=== PATIENT | female | born 1950 | race Caucasian/White ===

== ENCOUNTER → 2016-11-26 | Outpatient (CLI) | payer MEDICARE, BC ==
--- NOTE | 2016-11-26 09:08 | US ---
EXAMINATION TYPE: US abdomen complete DATE OF EXAM: 11/26/2016 COMPARISON: NONE CLINICAL HISTORY: Unspecified Abdominal Pain R10.9. RUQ pain that extends to back, cholecystectomy EXAM MEASUREMENTS: Liver Length: 18.7 cm Gallbladder Wall: N/A CBD: 0.7 cm Spleen: not seen Right Kidney: 10.4 x 3.4 x 3.0 cm Left Kidney: 10.7 x 4.8 x 5.4 cm Pancreas: Visualized portions are within normal limits Liver: wnl Gallbladder: Surgically absent Evidence for sonographic Juan's sign: no CBD: wnl Spleen: unable to visualized spleen due to high position and bowel gas Right Kidney: wnl Left Kidney: wnl Upper IVC: wnl Abd Aorta: limited views due to bowel gas The liver is homogenous. The intrahepatic portion of the IVC and proximal abdominal aorta are within normal limits. The visualized portions of the pancreas are homogenous. Kidneys are symmetric and free of hydronephrosis. No renal lesions are seen. IMPRESSION: 1. Nonvisualization of the spleen due to overlying bowel gas. 2. Status post cholecystectomy. 3. Unremarkable liver, visualized portions of the pancreas, visualized aortic caliber, and kidneys.
== END | disposition home or self-care (01) ==
LOC: RADUSWWP 07:29
PROVIDERS: ATTEND Family Medicine
DX: R10.9 Unspecified abdominal pain (principal); Z90.49 Acquired absence of other specified parts of digestive tract
CPT/HCPCS: 76700

== ENCOUNTER → 2016-12-04 | Outpatient (CLI) | payer MEDICARE, BC ==
--- NOTE | 2016-12-04 12:41 | MM ---
Reason for exam: screening (asymptomatic). Last mammogram was performed 1 year ago. History: Patient is postmenopausal. Family history of breast cancer in mother. Physical Findings: A clinical breast exam by your physician is recommended on an annual basis and results should be correlated with mammographic findings. MG Screening Mammo w CAD Bilateral CC and MLO view(s) were taken. Prior study comparison: November 28, 2015, mammogram, performed at [facility]. November 21, 2014, mammogram, performed at [facility]. There are scattered fibroglandular densities. No suspicious abnormality. No significant changes when compared with prior studies. ASSESSMENT: Negative, BI-RAD 1 RECOMMENDATION: Routine screening mammogram of both breasts in 1 year.
== END | disposition home or self-care (01) ==
LOC: RADMAMWWP 08:10
PROVIDERS: ATTEND Family Medicine
DX: Z12.31 Encounter for screening mammogram for malignant neoplasm of breast (principal)

== ENCOUNTER → 2017-12-09 | Outpatient (CLI) | payer MEDICARE, BC ==
--- NOTE | 2017-12-11 11:04 | MM ---
Reason for exam: screening (asymptomatic). Last mammogram was performed 1 year ago. History: Patient is postmenopausal. Family history of breast cancer in mother. Physical Findings: A clinical breast exam by your physician is recommended on an annual basis and results should be correlated with mammographic findings. MG 3D Screening Mammo W/Cad Bilateral CC and MLO view(s) were taken. Prior study comparison: December 04, 2016, bilateral MG screening mammo w CAD. November 28, 2015, mammogram, performed at [facility]. The breast tissue is almost entirely fat. There is chronic nodularity in the right breast. No significant changes when compared with prior studies. ASSESSMENT: Negative, BI-RAD 1 RECOMMENDATION: Routine screening mammogram of both breasts in 1 year.
== END ==
LOC: RADMAMWWP 13:43
PROVIDERS: ATTEND Family Medicine
DX: Z12.31 Encounter for screening mammogram for malignant neoplasm of breast (principal)
CPT/HCPCS: 77063; 77067

== ENCOUNTER → 2018-12-16 | Outpatient (CLI) | payer MEDICARE ==
--- NOTE | 2018-12-17 09:52 | MM ---
Reason for exam: screening (asymptomatic). Last mammogram was performed 1 year ago. History: Patient is postmenopausal. Family history of breast cancer in mother. Physical Findings: A clinical breast exam by your physician is recommended on an annual basis and results should be correlated with mammographic findings. MG 3D Screening Mammo W/Cad Bilateral CC and MLO view(s) were taken. Prior study comparison: December 09, 2017, bilateral MG 3d screening mammo w/cad. December 04, 2016, bilateral MG screening mammo w CAD. There are scattered fibroglandular densities. There is no discrete abnormality. No significant changes when compared with prior studies. ASSESSMENT: Negative, BI-RAD 1 RECOMMENDATION: Routine screening mammogram of both breasts in 1 year.
== END | disposition home or self-care (01) ==
LOC: RADMAMWWP 07:32
PROVIDERS: ATTEND Family Medicine
DX: Z12.31 Encounter for screening mammogram for malignant neoplasm of breast (principal)
CPT/HCPCS: 77063; 77067

== ENCOUNTER → 2019-08-22 | Outpatient (CLI) | payer MEDICARE ==
--- NOTE | 2019-08-22 11:56 | US ---
EXAMINATION TYPE: US venous doppler duplex LE DATE OF EXAM: 08/22/2019 10:43 AM COMPARISON: NONE CLINICAL HISTORY: 68-year-old female R60.9 Edema. Intermittent bilateral ankle swelling x 1 week SIDE PERFORMED: Bilateral TECHNIQUE: The lower extremity deep venous system is examined utilizing real time linear array sonog patsy with graded compression, doppler sonography and color-flow sonography. FINDINGS: VESSELS IMAGED: External Iliac Vein (EIV) Common Femoral Vein Deep Femoral Vein Greater Saphenous Vein * Femoral Vein Popliteal Vein Small Saphenous Vein * Proximal Calf Veins (* superficial vessels) Right Leg: Appears negative for DVT Left Leg: Appears negative for DVT IMPRESSION: No evidence for DVT within the bilateral lower extremities imaged from the groin to the upper calves.
== END | disposition home or self-care (01) ==
LOC: RADUSWWP 10:02
PROVIDERS: ATTEND Family Medicine
DX: R60.9 Edema, unspecified (principal)
CPT/HCPCS: 93970

== ENCOUNTER → 2019-08-23 | Outpatient (CLI) | payer MEDICARE ==
--- NOTE | 2019-08-24 16:00 | ECHOF ---
Referral Reason:R60.9 Edema, G72.9 Myopathy MEASUREMENTS -------- HEIGHT: 160.0 cm WEIGHT: 83.9 kg BP: RVIDd: 2.5 cm (< 3.3) IVSd: 1.3 cm (0.6 - 1.1) LVIDd: 3.8 cm (3.9 - 5.3) LVPWd: 1.2 cm (0.6 - 1.1) IVSs: 1.5 cm LVIDs: 2.5 cm LVPWs: 1.7 cm LAESV Index (A-L): 17.75 ml/m Ao Diam: 3.2 cm (2.0 - 3.7) AV Cusp: 1.6 cm (1.5 - 2.6) MV EXCURSION: 17.153 mm (> 18.000) MV EF SLOPE: 50 mm/s (70 - 150) EPSS: 0.4 cm MV E Jatin: 0.63 m/s MV DecT: 271 ms MV A Jatin: 0.52 m/s MV E/A Ratio: 1.21 RAP: 5.00 mmHg RVSP: 23.49 mmHg FINDINGS -------- This was a technically good study. The left ventricular size is normal. There is mild concentric left ventricular hypertrophy. Overa ll left ventricular systolic function is normal with, an EF between 55 - 60 %. The diastolic fillin g pattern is normal for the age of the patient 10.42. The right ventricle is normal in size. Normal LA size by volume 22+/-6 ml/m2. The right atrial size is normal. Interatrial and interventricular septum intact. There is no evidence of aortic regurgitation. There is no evidence of aortic stenosis. Mild mitral regurgitation is present. Mild tricuspid regurgitation present. There is no evidence of pulmonary hypertension. The right v entricular systolic pressure, as measured by Doppler, is 23.49mmHg. There is no pulmonic regurgitation present. The aortic root size is normal. IVC Not well visulized. There is no pericardial effusion. CONCLUSIONS -------- 1. This was a technically good study. 2. The left ventricular size is normal. 3. There is mild concentric left ventricular hypertrophy. 4. Overall left ventricular systolic function is normal with, an EF between 55 - 60 %. 5. The diastolic filling pattern is normal for the age of the patient 10.42 6. The right ventricle is normal in size. 7. Normal LA size by volume 22+/-6 ml/m2. 8. The right atrial size is normal. 9. Interatrial and interventricular septum intact. 10. There is no evidence of aortic regurgitation. 11. There is no evidence of aortic stenosis. 12. Mild mitral regurgitation is present. 13. Mild tricuspid regurgitation present. 14. There is no evidence of pulmonary hypertension. 15. The right ventricular systolic pressure, as measured by Doppler, is 23.49mmHg. 16. There is no pulmonic regurgitation present. 17. The aortic root size is normal. 18. IVC Not well visulized. 19. There is no pericardial effusion. WASHER ENGINEER: Lila Castro RDCS
== END | disposition home or self-care (01) ==
LOC: RADECHMAIN 13:01
PROVIDERS: ATTEND Family Medicine
DX: I08.1 Rheumatic disorders of both mitral and tricuspid valves (principal)
CPT/HCPCS: 93306

== ENCOUNTER → 2020-09-03 | Outpatient (CLI) | payer MEDICARE ==
--- NOTE | 2020-09-05 08:38 | MM ---
Reason for exam: screening (asymptomatic). Last mammogram was performed 1 year and 9 months ago. History: Patient is postmenopausal. Family history of breast cancer in mother. Took hormonal contraceptives for 4 years. Physical Findings: A clinical breast exam by your physician is recommended on an annual basis and results should be correlated with mammographic findings. MG 3D Screening Mammo W/Cad Bilateral CC and MLO view(s) were taken. Prior study comparison: December 16, 2018, bilateral MG 3d screening mammo w/cad. December 09, 2017, bilateral MG 3d screening mammo w/cad. The breast tissue is almost entirely fat. No significant changes when compared with prior studies. ASSESSMENT: Benign, BI-RAD 2 RECOMMENDATION: Routine screening mammogram of both breasts in 1 year.
== END | disposition home or self-care (01) ==
LOC: RADMAMWWP 13:18
PROVIDERS: ATTEND Family Medicine
DX: Z12.31 Encounter for screening mammogram for malignant neoplasm of breast (principal); Z78.0 Asymptomatic menopausal state; Z80.3 Family history of malignant neoplasm of breast
CPT/HCPCS: 77063; 77067

== ENCOUNTER → 2021-09-06 | Outpatient (CLI) | payer MEDICARE ==
--- NOTE | 2021-09-09 09:58 | MM ---
Reason for Exam: Screening (asymptomatic). Last screening mammogram was performed 12 month(s) ago. Patient History: Menarche at age 11. First Full-Term at age 25. Hysterectomy at age 40. Postmenopausal. Patient used Hormonal Contraceptives for 4 years. Mother had breast cancer. Risk Values: Consuelo 5 year model risk: 3.4%. NCI Lifetime model risk: 9.3%. Prior Study Comparison: 12/09/2017 Bilateral Screening Mammogram, [facility]. 12/16/2018 Bilateral Screening Mammogram, [facility]. 09/03/2020 Bilateral Screening Mammogram, [facility]. Tissue Density: There are scattered fibroglandular densities. Findings: Analyzed By CAD. There is no suspicious group of microcalcifications or new suspicious mass in either breast. Overall Assessment: Negative, BI-RAD 1 Management: Screening Mammogram of both breasts in 1 year. A clinical breast exam by your physician is recommended on an annual basis and results should be correlated with mammographic findings. Electronically signed and approved by: Bryn Harris M.D. Radiologis
== END | disposition home or self-care (01) ==
LOC: RADMAMWWP 11:32
PROVIDERS: ATTEND Family Medicine
DX: Z12.31 Encounter for screening mammogram for malignant neoplasm of breast (principal); Z80.3 Family history of malignant neoplasm of breast; Z78.0 Asymptomatic menopausal state
CPT/HCPCS: 77063; 77067

== ENCOUNTER 2022-07-26 13:30 | Emergency (ER) | payer MEDICARE ==
--- NOTE | 2022-07-26 14:12 | ED ---
Fall HPI - General Chief Complaint: Fall Stated Complaint: Fall, facial injury Time Seen by Provider: 07/26/22 13:36 Source: patient, RN notes reviewed Mode of arrival: ambulatory - History of Present Illness Initial Comments: This is a 71-year-old female who presents to the emergency department for a fall. Patient was using her walker earlier today when she tripped and fell face first onto the concrete. This was a new walker she had purchased, she states that this is taller than her typical walker. She had purchased this for the purpose of being able to take walks around her neighborhood and she had not used it before. Denies any loss consciousness and she is not taking any blood thinners. Currently has pain around the right eye and in the right shoulder. Denies any visual changes, lightheadedness, or dizziness. She is still able to move the right arm without difficulty. She initially went to urgent care, and was told to come to the emergency department for further evaluation. Denies any fevers, chills, sore throat, cough, dyspnea, chest pain, palpitations, abdominal pain, nausea, vomiting, diarrhea, or back pain. MD Complaint: fall - Related Data Allergies Allergy/AdvReac Type Severity Reaction Status Date / Time No Known Allergies Allergy Verified 07/26/22 13:35 Review of Systems ROS Statement: Those systems with pertinent positive or pertinent negative responses have been documented in the HPI. ROS Other: All systems not noted in ROS Statement are negative. Past Medical History Past Medical History: Hypertension, Thyroid Disorder Additional Past Medical History / Comment(s): Muscle weakness History of Any Multi-Drug Resistant Organisms: None Reported Past Surgical History: No Surgical Hx Reported Past Psychological History: No Psychological Hx Reported Smoking Status: Never smoker Past Alcohol Use History: None Reported Past Drug Use History: None Reported General Exam Limitations: no limitations General appearance: alert, in no apparent distress Eye exam: Present: PERRL, EOMI, other (Right periorbital swelling and ecchymosis with overlying tenderness.) Respiratory exam: Present: normal lung sounds bilaterally. Absent: respiratory distress, wheezes, rales, rhonchi, stridor Cardiovascular Exam: Present: regular rate, normal rhythm, normal heart sounds. Absent: systolic murmur, diastolic murmur, rubs, gallop, clicks Extremities exam: Present: other (Ecchymosis over the right mid clavicle. No overlying tenderness. Full active and passive range of motion of the right upper extremity. 2+ radial pulses.) Neurological exam: Present: alert, oriented X3, CN II-XII intact Psychiatric exam: Present: normal affect, normal mood Skin exam: Present: warm, dry, intact, normal color. Absent: rash Course Vital Signs 07/26/22 07/26/22 13:32 15:01 Temperature 98.3 F 98.2 F Pulse Rate 76 75 Respiratory 20 18 Rate Blood Pressure 174/79 159/81 O2 Sat by Pulse 99 99 Oximetry Medical Decision Making - Medical Decision Making This is a 71-year-old female who presents to the emergency department for a fall. Was pt. sent in by a medical professional or institution? @ -Urgent Care Did you speak to anyone other than the patient for history? @ -No Did you review nursing and triage notes? @ -Yes, and I agree, it is accurate with regards to the patient's symptoms. Were old charts reviewed? @ -No Differential Diagnosis? @ -Differential Diagnosis Head Injury: Contusion, hematoma, intracranial hemorrhage, skull fracture, whiplash, concussion, this is not meant to be an all-inclusive list. EKG interpreted by me (3pts min.)? @ -Not obtained X-rays interpreted by me (1pt min.)? @ -X-ray of the right shoulder obtained. My interpretation identifies no acute fractures or dislocations. CT interpreted by me (1pt min.)? @ -Computed tomography scan of the brain, facial bones, and c-spine obtained. My interpretation identifies no evidence of an acute intracranial hemorrhage, skull fracture, or cervical spine fracture. U/S interpreted by me (1pt. min.)? @ -Not obtained What testing was considered but not performed? (CT, X-rays, U/S, labs)? Why? @ -None What meds were considered but not given? Why? @ -None Did you discuss the management of the patient with other professionals? @ -No Did you reconcile home meds? @ -No Was smoking cessation discussed for >3mins.? @ -No Was critical care preformed (if so, how long)? @ -No Were there social determinants of health that impacted care today? How? (Homelessness, low income, unemployed, alcoholism, drug addiction, transportation, low edu. Level, literacy, decrease access to med. care, retirement, rehab)? @ -No Was there de-escalation of care discussed even if they declined? (Discuss DNR or withdrawal of care, Hospice)? @ -No What co-morbidities impacted this encounter? (DM, HTN, Smoking, COPD, CAD, Cancer, CVA, Hep., AIDS, mental health diagnosis, sleep apnea, morbid obesity)? @ -Muscle weakness Was patient admitted / discharged? @ -Discharged. Computed tomography scan of the brain, facial bones, and C- spine obtained revealing no acute findings. X-ray of the right shoulder obtained as well, also revealing no acute findings. Advised the patient that the bruising, especially around the right eye, may take a while to resolve. She may also noticed that it starts to spread initially. Advised alternating with ibuprofen and Tylenol as needed for pain relief and applying ice to the painful areas for 10-15 minutes every 2-3 hours. Undiagnosed new problem with uncertain prognosis? @ -None Drug Therapy requiring intensive monitoring for toxicity (Heparin, Nitro, Insulin, Cardizem)? @ -None Were any procedures done? @ -None Diagnosis/symptom? @ -Right periorbital hematoma, fall Acute, or Chronic, or Acute on Chronic? @ -Acute Uncomplicated (without systemic symptoms) or Complicated (systemic symptoms)? @ -Uncomplicated Side effects of treatment? @ -None Exacerbation, Progression, or Severe Exacerbation] @ -Not applicable Poses a threat to life or bodily function? @ -No Return precautions reviewed in depth, the patient is instructed to return to the emergency department with any new, worsening, or concerning symptoms. Patient verbalized understanding. This case was discussed in detail with the attending ED physician, Dr. Perdomo. Presentation, findings, and treatment plan discussed in detail as well. - Radiology Data Radiology results: report reviewed, image reviewed Disposition Clinical Impression: Fall, Periorbital hematoma of right eye Disposition: HOME SELF-CARE Instructions (If sedation given, give patient instructions): Black Eye (ED), Head Injury (ED), Hematoma (ED) Additional Instructions: Return to the emergency department with any new, worsening, or concerning symptoms. Alternate with ibuprofen and Tylenol as needed for pain relief. You can apply ice for 10-15 minutes every 2-3 hours. Follow up with your primary care provider in 1-2 days. Is patient prescribed a controlled substance at d/c from ED?: No Referrals: Heather Willis III, MD [Primary Care Provider] - 1-2 days
--- NOTE | 2022-07-26 14:25 | XR ---
EXAMINATION TYPE: XR shoulder complete RT DATE OF EXAM: 07/26/2022 CLINICAL HISTORY: pain TECHNIQUE: Three views of the right shoulder are obtained. COMPARISON: None FINDINGS: There is no acute fracture/dislocation evident. The acromioclavicular and glenohumeral garcia int spaces appear moderately narrowed. Loose bodies noted about the right glenohumeral joint space in feriorly. Bony spur formation evident. The visualized ribs are intact and unremarkable. IMPRESSION: 1. There is no acute fracture or dislocation. ICD 10 NO FRACTURE, INITIAL EVALUATION
--- NOTE | 2022-07-26 14:34 | CT ---
EXAMINATION TYPE: CT brain susana belle con DATE OF EXAM: 07/26/2022 COMPARISON: none HISTORY: fall CT DLP: combined DLP 1139.[address] of the brain was performed. The ventricles, basal cisterns and sulci overlying the cerebral convexities demonstrate mild enlargem ent. There is no evidence for intracranial hemorrhage or sulcal effacement. There is decreased attenuatio n about the periventricular white matter and deep white matter of both cerebral hemispheres, compatib le with chronic small vessel ischemia. No mass effects are seen. If symptoms persist consider MRI. Osseous calvarium is intact. IMPRESSION: 1. Age related atrophic and chronic small vessel ischemic change without acute intracranial process seen at this time. CT Cervical Spine: Unenhanced CT of the cervical spine was performed with bone and soft tissue window settings submitted . Coronal and sagittal reconstruction is obtained. There is normal alignment and prevertebral soft tissues. No evidence for acute cervical fracture . Scattered degenerative disc disease and spondylosis. Biapical scarring. IMPRESSION: 1. No evidence for acute fracture or subluxation of the cervical spine.
--- NOTE | 2022-07-26 14:38 | CT ---
EXAMINATION TYPE: CT facial bones wo con DATE OF EXAM: 07/26/2022 COMPARISON: None HISTORY: fall, bruising around right eye. CT DLP: combined DLP 1139.[address] of the facial bones was performed in the axial and coronal planes. Bone and soft tissu e window settings are submitted. The right periorbital soft tissue swelling noted. I do not see evidence for displaced facial bone fracture or depressed facial bone fracture. The globes are intact. Mild chronic pansinusitis. IMPRESSION: 1. No evidence for depressed or displaced facial bone fracture.
[2022-07-26 15:03] VITALS: BP 159/81; PULSE 75; RESP 18; TEMP 98.2
== END 2022-07-26 15:03 | disposition home or self-care (01) ==
LOC: EC 13:30
DX: S05.11XA Contusion of eyeball and orbital tissues, right eye, initial encounter (principal); I10 Essential (primary) hypertension; W01.0XXA Fall on same level from slipping, tripping and stumbling without subsequent striking against object, initial encounter
CPT/HCPCS: 70450; 70486; 72125; 99284

== ENCOUNTER → 2022-09-22 | Outpatient (CLI) | payer MEDICARE ==
--- NOTE | 2022-09-23 20:42 | MM ---
Reason for Exam: Screening (asymptomatic). Last screening mammogram was performed 12 month(s) ago. Patient History: Menarche at age 11. First Full-Term at age 25. Hysterectomy at age 40. Postmenopausal. Patient has history of breast feeding. Patient used Hormonal Contraceptives for 4 years. Mother had breast cancer, age 75. Risk Values: Consuelo 5 year model risk: 3.5%. NCI Lifetime model risk: 8.8%. Prior Study Comparison: 12/16/2018 Bilateral Screening Mammogram, [facility]. 09/03/2020 Bilateral Screening Mammogram, [facility]. 09/06/2021 Bilateral MG 3D screening mammo w/cad, [facility]. Tissue Density: There are scattered fibroglandular densities. Findings: Analyzed By CAD. Chronic low density nodularity on the right. There is no suspicious group of microcalcifications or new suspicious mass in either breast. Overall Assessment: Benign, BI-RAD 2 Management: Screening Mammogram of both breasts in 1 year. See note below in regards to patient's increased 5 year Consuelo score. Patient should continue monthly self-breast exams. A clinical breast exam by your physician is recommended on an annual basis. This exam should not preclude additional follow-up of suspicious palpable abnormalities. Note on Consuelo scores and lifetime risk: 1. A Consuelo score greater than 3% is considered moderate risk. If this is the case, consider specialist referral to assess eligibility for a risk reducing agent. 2. If overall lifetime risk for the development of breast cancer is 20% or higher, the patient may qualify for future screening with alternating mammogram and breast MRI. Electronically signed and approved by: Stephen Parks M.D. Radiologist
== END | disposition home or self-care (01) ==
LOC: RADMAMWWP 14:51
PROVIDERS: ATTEND Family Medicine
DX: Z12.31 Encounter for screening mammogram for malignant neoplasm of breast (principal); Z78.0 Asymptomatic menopausal state; Z80.3 Family history of malignant neoplasm of breast
CPT/HCPCS: 77063; 77067

== ENCOUNTER → 2023-10-07 | Outpatient (CLI) | payer MEDICARE ==
--- NOTE | 2023-10-28 12:47 | MM ---
Reason for Exam: Screening (asymptomatic). Last mammogram was performed 1 year(s) and 1 month(s) ago. Patient History: Menarche at age 11. First Full-Term at age 25. Hysterectomy at age 40. Postmenopausal. Patient has history of breast feeding. Patient used Hormonal Contraceptives for 4 years. Mother had breast cancer, age 75. Risk Values: Consuelo 5 year model risk: 3.5%. NCI Lifetime model risk: 8.4%. Prior Study Comparison: 09/03/2020 Bilateral Screening Mammogram, [facility]. 09/06/2021 Bilateral MG 3D screening mammo w/cad, [facility]. 09/22/2022 Bilateral MG 3D screening mammo w/cad, [facility]. Tissue Density: The breasts are almost entirely fatty. Findings: Analyzed By CAD. Right breast: Asymmetry cc view 11.37 cm from the nipple lateral aspect middle depth, this appears more prominent on today's exam. Left breast: There is no suspicious group of microcalcifications or new suspicious mass. Overall Assessment: Incomplete: need additional imaging evaluation, BI-RAD 0 Management: Diagnostic Mammogram of the left breast. [facility] will attempt to contact patient to return for supplemental views and ultrasound if indicated. Patient should continue monthly self-breast exams. A clinical breast exam by your physician is recommended on an annual basis. This exam should not preclude additional follow-up of suspicious palpable abnormalities. Note on Consuelo scores and lifetime risk: 1. A Consuelo score greater than 3% is considered moderate risk. If this is the case, consider specialist referral to assess eligibility for a risk reducing agent. 2. If overall lifetime risk for the development of breast cancer is 20% or higher, the patient may qualify for future screening with alternating mammogram and breast MRI. Electronically signed and approved by: Jerrell Leggett DO
== END | disposition home or self-care (01) ==
LOC: RADMAMWWP 12:00
DX: Z12.31 Encounter for screening mammogram for malignant neoplasm of breast
CPT/HCPCS: 77063; 77067

== ENCOUNTER → 2023-11-04 | Outpatient (CLI) | payer MEDICARE ==
--- NOTE | 2023-11-04 10:17 | MM ---
Reason for Exam: Additional evaluation requested from abnormal screening. Last screening mammogram was performed less than 1 month ago. Patient History: Menarche at age 11. First Full-Term at age 25. Hysterectomy at age 40. Postmenopausal. Patient has history of breast feeding. Patient used Hormonal Contraceptives for 4 years. Mother had breast cancer, age 75. Risk Values: Consuelo 5 year model risk: 3.5%. NCI Lifetime model risk: 8.4%. Prior Study Comparison: 12/04/2016 Bilateral Screening Mammogram, [facility]. 12/09/2017 Bilateral Screening Mammogram, [facility]. 12/16/2018 Bilateral Screening Mammogram, [facility]. 09/03/2020 Bilateral Screening Mammogram, [facility]. 09/06/2021 Bilateral MG 3D screening mammo w/cad, [facility]. 09/22/2022 Bilateral MG 3D screening mammo w/cad, [facility]. 10/07/2023 Bilateral MG 3D screening mammo w/cad, [facility]. Tissue Density: Right: There are scattered areas of fibroglandular density. Findings: Analyzed By CAD. 2 areas of nodularity measuring 6 to 7 mm each between 9 and 12 cm from the nipple. Ultrasound recommended. Overall Assessment: Incomplete: need additional imaging evaluation, BI-RAD 0 Management: Diagnostic Breast Ultrasound of the right breast. . Results were given to the patient verbally at the time of exam. Patient should continue monthly self-breast exams. A clinical breast exam by your physician is recommended on an annual basis. This exam should not preclude additional follow-up of suspicious palpable abnormalities. Note on Consuelo scores and lifetime risk: 1. A Consuelo score greater than 3% is considered moderate risk. If this is the case, consider specialist referral to assess eligibility for a risk reducing agent. 2. If overall lifetime risk for the development of breast cancer is 20% or higher, the patient may qualify for future screening with alternating mammogram and breast MRI. Electronically signed and approved by: Bryn Harris M.D. Radiologis
--- NOTE | 2023-11-04 10:49 | USB ---
Reason for Exam: Additional evaluation requested from abnormal screening. Patient History: Menarche at age 11. First Full-Term at age 25. Hysterectomy at age 40. Postmenopausal. Patient has history of breast feeding. Patient used Hormonal Contraceptives for 4 years. Mother had breast cancer, age 75. Risk Values: Consuelo 5 year model risk: 3.5%. NCI Lifetime model risk: 8.4%. Technique: Method: Targeted. Prior Study Comparison: 09/06/2021 Bilateral MG 3D screening mammo w/cad, [facility]. 09/22/2022 Bilateral MG 3D screening mammo w/cad, [facility]. 10/07/2023 Bilateral MG 3D screening mammo w/cad, [facility]. Findings: The upper outer quadrant of the right breast, the axilla of the right breast and the retroareolar of the right breast were scanned. Hypoechoic lesion right breast 9:00 7 cm from the nipple which may reflect a small complex cyst. Mildly prominent duct at the right 10:00 position with an adjacent cyst right axillary lymph nodes with slightly thickened cortex. Six-month ultrasound recommended. Overall Assessment: Probably benign, BI-RAD 3 Management: Diagnostic Breast Ultrasound of the right breast in 6 months. A clinical breast exam by your physician is recommended on an annual basis and results should be correlated with mammographic findings. This exam should not preclude additional follow-up of suspicious palpable abnormalities. Results were given to the patient verbally at the time of exam. Electronically signed and approved by: Bryn Harris M.D. Radiologis
== END | disposition home or self-care (01) ==
LOC: RADMAMWWP 09:32
DX: R92.8 Other abnormal and inconclusive findings on diagnostic imaging of breast
CPT/HCPCS: 77061; 77065